=== PATIENT | male | born 1995 ===

== ENCOUNTER 2022-09-06 20:42 | Emergency (ER) | payer MEDICAID | END 2022-09-07 01:19 | disposition left against medical advice (07) | LOC: ER 20:44 | DX: Z04.1 Encounter for examination and observation following transport accident (principal); Z53.21 Procedure and treatment not carried out due to patient leaving prior to being seen by health care provider ==

== ENCOUNTER 2022-09-23 07:52 | Emergency (ER) | payer MEDICAID ==
[~2022-09-23] VITALS: Ht 182.9 cm; Wt 81.8 kg
[2022-09-23] MEDS ORDERED: SULF1TAB49 PO (09:25)
[2022-09-23 09:29] VITALS: BP 137/83
== END 2022-09-23 09:57 | disposition home or self-care (01) ==
LOC: ER 07:52
DX: K13.0 Diseases of lips (principal); F12.90 Cannabis use, unspecified, uncomplicated; F17.200 Nicotine dependence, unspecified, uncomplicated; Z79.82 Long term (current) use of aspirin; Z79.899 Other long term (current) drug therapy
CPT/HCPCS: 36415; 87491; 99283